=== PATIENT | female | born 1970 | race Caucasian/White ===

== ENCOUNTER → 2016-12-24 | Outpatient (CLI) | payer MEDICARE ==
--- NOTE | 2016-12-24 18:37 | WWHP ---
DATE OF SERVICE: 12/24/2016 CHIEF COMPLAINT: Patient is here for her routine gynecologic exam and mammogram. HPI: This is a 46-year-old, G2, P2 with an LMP of 11/30/2016. She is status post tubal ligation. She is without gynecologic complaints. She states her periods are generally been regular every month, but she missed a period last month. She states it has been about 10 years since her last pelvic exam. Her last mammogram was on 03/08/2014 and was benign. She denies hot flashes. PAST MEDICAL HISTORY: Chronic right leg problems, TMJ, anxiety and depression. MEDICATIONS: 1. Gabapentin 600 mg b.i.d. 2. Celexa 40 mg daily. 3. Baclofen 20 mg daily. 4. [place] 5/325 mg p.r.n. 5. Niacin 500 mg daily. 6. Vitamin B12 1000 units daily. 7. Multivitamin 1 daily. 8. Vitamin D3 2000 units 3 times weekly. ALLERGIES TO LEVAQUIN which caused a headache, weakness, and sick feeling. PAST SURGICAL HISTORY: section x2 and she did have a tubal ligation with her last one, knee replacement surgeries x2 and the right knee revision in 2009, cholecystectomy 1993, umbilical hernia repair in the past. 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 SOCIAL HISTORY: She smokes about 1 pack of cigarettes per day and quit drinking alcohol in 2016. She denies drug use. She is and is not seeing anybody at this time and has not been sexually active for more than 2 years. She is considered disabled. FAMILY HISTORY: Father had an [place] and cousin had lymph node cancer. REVIEW OF SYSTEMS: She denies respiratory or cardiac problems. GI: Occasional constipation which she associates with her opioid pain medication. PHYSICAL EXAM: Blood pressure 125/73. Height 5 feet 3 inches. Weight 214 pounds. Temperature 96.4, pulse 75. This a well-developed, heavyset white female who is alert and oriented x3 in no acute distress. HEENT is within normal limits. NECK: Supple without mass or thyromegaly. CHEST AND LUNGS: Clear to auscultation. HEART: Regular rate and rhythm. Breasts are without mass or discharge. Axillary exam is negative for adenopathy. BACK: Negative for CVA tenderness. ABDOMEN: Soft, nontender, without palpable masses. PELVIC EXAM: Normal external genitalia. Cervix and vagina appear normal. There is no evidence of prolapse. The uterus is midposition, nongravid size and nontender. There are no palpable adnexal masses or tenderness. Rectal exam is negative for mass or tenderness and is negative for occult blood. EXTREMITIES: Nontender. IMPRESSION: A 46-year-old gynecologically healthy female who is status post tubal ligation. PLAN: 1. Pap smear was performed. 2. Self breast examination was discussed. 3. Mammogram will be done today. 4. I have recommended that she quit smoking and we have discussed several reasons why I am suggesting this. 5. Osteoporosis prevention was discussed. 6. She will return in one year.
--- NOTE | 2016-12-25 09:10 | MM ---
Reason for exam: screening (asymptomatic). Last mammogram was performed 2 years and 10 months ago. History: Took hormonal contraceptives for 2 years beginning at age 17. Physical Findings: A clinical breast exam by your physician is recommended on an annual basis and results should be correlated with mammographic findings. MG Screening Mammo w CAD Bilateral CC and MLO view(s) were taken. Prior study comparison: March 08, 2014, bilateral MG diagnostic mammo w CAD [facility]. June 18, 2012, CAD bilateral diagnostic mammogram. The breast tissue is almost entirely fat. There is chronic nodularity in the right breast. No significant changes when compared with prior studies. ASSESSMENT: Benign, BI-RAD 2 RECOMMENDATION: Routine screening mammogram of both breasts in 1 year.
== END | disposition home or self-care (01) ==
LOC: WWCWWP 08:27
PROVIDERS: ATTEND Obstetrics & Gynecology
DX: Z12.31 Encounter for screening mammogram for malignant neoplasm of breast (principal)

== ENCOUNTER → 2018-02-13 | Outpatient (CLI) | payer MEDICARE ==
[2018-02-13 10:07] LABS: Basophils # (A) 0.1 k/uL (0-0.2); Basophils % (A) 1 %; Eosinophils # (A) 0.1 k/uL (0-0.7); Eosinophils % (A) 2 %; HCT 43.2 % (34.0-46.0); HGB 14.1 gm/dL (11.4-16.0); Lymphocytes % (A) 24 %; MCH 31.6 pg (25.0-35.0); MCHC 32.7 g/dL (31.0-37.0); MCV 96.5 fL (80.0-100.0); Mean Platelet Volume 6.7; Monocytes # (A) 0.4 k/uL (0-1.0); Monocytes % (A) 5 %; Neutrophils # (A) 5.6 k/uL (1.3-7.7); Neutrophils % (A) 68 %; Platelet Count 324 k/uL (150-450); RBC 4.48 m/uL (3.80-5.40); RDW 14.9 % (11.5-15.5); WBC 8.3 k/uL (3.8-10.6)
[2018-02-13 10:14] LABS: ALT 41 U/L (9-52); AST 29 U/L (14-36); Albumin 4.1 g/dL (3.5-5.0); Alkaline Phosphatase 73 U/L (38-126); Anion Gap 10 mmol/L; Blood Urea Nitrogen 6 mg/dL (7-17); C Reactive Protein 20.2 mg/L (<10.0); Calcium 9.4 mg/dL (8.4-10.2); Carbon Dioxide 25 mmol/L (22-30); Chloride 105 mmol/L (98-107); Glucose 100 mg/dL (74-99); Potassium 4.5 mmol/L (3.5-5.1); Sodium 140 mmol/L (137-145); Total Bilirubin 0.3 mg/dL (0.2-1.3); Total Protein 7.8 g/dL (6.3-8.2)
[2018-02-13 12:44] LABS: Erythrocyte Sedimentation Rate 36 mm/hr (0-20)
== END | disposition home or self-care (01) ==
LOC: LABWHC1 09:19
PROVIDERS: ATTEND Internal Medicine Infectious Disease
DX: T84.53XA Infection and inflammatory reaction due to internal right knee prosthesis, initial encounter (principal)
CPT/HCPCS: 36415; 80053; 85025; 85652; 86140

== ENCOUNTER → 2018-02-26 | Outpatient (CLI) | payer MEDICARE | END | disposition home or self-care (01) | LOC: RADUSWWP 12:06 | PROVIDERS: ATTEND Internal Medicine Infectious Disease | DX: I73.9 Peripheral vascular disease, unspecified (principal) | CPT/HCPCS: 93923 ==

== ENCOUNTER → 2018-05-13 | Outpatient (CLI) | payer MEDICARE ==
[2018-05-13 09:55] VITALS: BP 121/69; PULSE 73; TEMP 97.4; BMI 37.7
--- NOTE | 2018-05-13 10:29 | P.HPOB ---
History of Present Illness H&P Date: 05/13/18 Chief Complaint: The patient is here for her routine gynecologic exam and mammogram. This is a 47-year-old with an LMP of 03/22/2018. The patient states periods seem to be spacing out and have been about every other month. She does have occasional hot flashes which are not very severe. She is otherwise without complaints. Review of Systems The patient's weight has been stable over the last year. She denies respiratory , cardiac, or G.I. problems. Past Medical History Past Medical History: Osteoarthritis (OA) (With chronic right leg problems) Additional Past Medical History / Comment(s): TMJ. 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 History of Any Multi-Drug Resistant Organisms: None Reported Past Surgical History: Section (x2), Cholecystectomy, Hernia Repair ( Umbilical), Joint Replacement (Knee replacement surgery followed by right knee revision in 2009), Orthopedic Surgery, Tubal Ligation (With last section) Past Psychological History: Anxiety, Depression Smoking Status: Current every day smoker (1 pack per day) Past Alcohol Use History: None Reported (Quit 2015) Past Drug Use History: None Reported Additional History: She is and has not been sexually active for several years. She is disabled. - Past Family History Father Family Medical History: Myocardial Infarction ([place]) Additional Family Medical History / Comment(s): Cousin had lymphoma. Medications and Allergies Home Medications Medication Instructions Recorded Confirmed Type Citalopram Hydrobromide [CeleXA] PO DAILY 05/13/18 History Diclofenac Sodium [Voltaren] PO DAILY 05/13/18 History Sulfamethox-Tmp 800-160Mg [Bactrim PO DAILY 05/13/18 History DS 800-160 mg] Allergies Allergy/AdvReac Type Severity Reaction Status Date / Time levofloxacin [From Levaquin] AdvReac Severe lethargy Unverified 05/13/18 09:52 Exam Vital Signs Temp Pulse BP 05/13/18 09:52 97.4 F L 73 121/69 Intake and Output 05/12/18 05/13/18 05/13/18 22:59 06:59 14:59 Other: Weight 96.615 kg Height 5'3", BMI 37.7. This is a well-developed well-nourished heavyset white female who is alert and oriented times 3 in no acute distress. HEENT: Within normal limits. NECK: Supple without mass or thyromegaly. CHEST AND LUNGS: Clear to auscultation. HEART: Regular rate and rhythm. BREASTS: Are without mass or discharge. AXILLARY EXAM: Negative for adenopathy. BACK: Negative for CVA tenderness. ABDOMEN: Soft, nontender, without palpable masses. PELVIC EXAM: Normal external genitalia. Cervix and vagina appear normal. There is no unusual discharge. There is no evidence of prolapse. The uterus is midposition, nongravid size and nontender. There are no palpable adnexal masses or tenderness. RECTAL EXAM: negative for mass or tenderness and is negative for occult blood. EXTREMITIES: Nontender. IMPRESSION: 1. 47-year-old perimenopausal female with oligomenorrhea and mild vasomotor symptoms with normal gynecologic exam. 2. The patient is status post tubal ligation. PLAN: 1. Pap smear was deferred since she had a normal one last year. 2. Self breast awareness was discussed with the patient. 3. Screening mammogram will be done today. 4. The patient will keep a menstrual calendar and call if she's having menstrual problems or she has bleeding following 12 months of amenorrhea. 5. Osteoporosis prevention was discussed. 6. She will return in one year.
--- NOTE | 2018-05-14 08:59 | MM ---
Reason for exam: screening (asymptomatic). Last mammogram was performed 1 year and 5 months ago. History: Took hormonal contraceptives for 2 years beginning at age 17. Physical Findings: A clinical breast exam by your physician is recommended on an annual basis and results should be correlated with mammographic findings. MG Screening Mammo w CAD Bilateral CC and MLO view(s) were taken. Prior study comparison: December 24, 2016, bilateral MG screening mammo w CAD. March 08, 2014, bilateral MG diagnostic mammo w CAD [facility]. There are scattered fibroglandular densities. No suspicious abnormality. No significant changes when compared with prior studies. ASSESSMENT: Negative, BI-RAD 1 RECOMMENDATION: Routine screening mammogram of both breasts in 1 year.
== END ==
LOC: WWCWWP 09:12
PROVIDERS: ATTEND Obstetrics & Gynecology
DX: Z12.31 Encounter for screening mammogram for malignant neoplasm of breast (principal)
CPT/HCPCS: 77067

== ENCOUNTER → 2019-07-14 | Outpatient (CLI) | payer MEDICARE ==
[2019-07-14 10:59] VITALS: BP 134/84; PULSE 70; RESP 18; TEMP 98.1
--- NOTE | 2019-07-14 11:41 | P.HPOB ---
History of Present Illness H&P Date: 07/14/19 Chief Complaint: The patient is here for her routine gynecologic exam and ma mmogram. This is a 48-year-old with an LMP of 05/25/2019. She is status post tubal ligation. Her menstrual periods have spaced out even more this year. She has had 3 menstrual periods during the past year and they were in August, December, and May. She does have occasional hot flashes, but they are not very severe. She is without gynecologic complaints. Review of Systems The patient has gained 18 pounds over the last year. She denies respiratory, cardiac, or G.I. problems. Past Medical History Past Medical History: Osteoarthritis (OA) Additional Past Medical History / Comment(s): TMJ. Chronic right leg problems associated with arthritis. 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 History of Any Multi-Drug Resistant Organisms: None Reported Past Surgical History: Section, Cholecystectomy, Hernia Repair, Joint Replacement, Orthopedic Surgery, Tubal Ligation Additional Past Surgical History / Comment(s): 2 ,right knee, umbilical hernia repair, knee replacement surgery and right knee revision. Past Psychological History: Anxiety, Depression Smoking Status: Current every day smoker (One pack per day) Past Alcohol Use History: None Reported Past Drug Use History: None Reported Additional History: She is and is not seeing anybody at this time. She is disabled. - Past Family History Father Family Medical History: Myocardial Infarction ([place]) Additional Family Medical History / Comment(s): Cousin had lymphoma. Mother Family Medical History: Cancer Additional Family Medical History / Comment(s): Colorectal cancer. Medications and Allergies Home Medications Medication Instructions Recorded Confirmed Type Citalopram Hydrobromide [CeleXA] 40 mg PO DAILY 05/13/18 07/14/19 History Diclofenac Sodium [Voltaren] 75 mg PO BID 05/13/18 07/14/19 History Sulfamethox-Tmp 800-160Mg [Bactrim 800 mg PO BID 05/13/18 07/14/19 History DS 800-160 mg] Baclofen [Lioresal] 20 mg PO DAILY 07/14/19 07/14/19 History Hydrocodone/Acetaminophen [[place] 1 tab PO Q4HR PRN 07/14/19 07/14/19 History 5-325] Allergies Allergy/AdvReac Type Severity Reaction Status Date / Time levofloxacin [From Levaquin] AdvReac Severe lethargy Unverified 07/14/19 10:51 Exam Vital Signs Temp Pulse Resp BP Pulse Ox 07/14/19 10:56 98.1 F 70 18 134/84 93 L Intake and Output 07/13/19 07/14/19 07/14/19 22:59 06:59 14:59 Other: Weight 105.233 kg Height 5 feet 3 inches, weight 232 pounds, BMI 41.1. This is a well-developed well-nourished white female who is alert and oriented times 3 in no acute distress. HEENT: Within normal limits. NECK: Supple without mass or thyromegaly. CHEST AND LUNGS: Clear to auscultation. HEART: Regular rate and rhythm. BREASTS: Are without mass or discharge. AXILLARY EXAM: Negative for adenopathy. BACK: Negative for CVA tenderness. ABDOMEN: Soft, obese, nontender, without palpable masses. PELVIC EXAM: Normal external genitalia. Cervix and vagina appear normal with minimal atrophy. There is no unusual discharge. There is no evidence of prolapse. The uterus is midposition, nongravid size and nontender. There are no palpable adnexal masses or tenderness. Bimanual examination is somewhat limited secondary to her size. RECTAL EXAM: Rectovaginal exam is negative for mass or tenderness and is negative for occult blood. EXTREMITIES: Nontender. IMPRESSION: 1. 48-year-old perimenopausal female with normal gynecologic exam. 2. Oligomenorrhea with mild vasomotor symptoms consistent with perimenopause. PLAN: 1. Pap smear was performed. 2. Self breast awareness was discussed with the patient. 3. Screening mammogram will be done today. 4. Osteoporosis prevention was discussed. I have stressed the importance of adequate calcium, vitamin D and regular exercise. Recommended amounts of calcium and vitamin D were also discussed. 5. She will continue to keep a menstrual calendar and call if she has menstrual problems. 6. Conservative measures for vasomotor symptoms were discussed. She is to call if she is having severe menopausal symptoms. 7. I have recommended that she look into having her first colonoscopy because of her mother's history of recently diagnosed colorectal cancer. I recommended that she discuss this with her primary care physician. 8. She was advised to return in one year for her annual well woman exam.
--- NOTE | 2019-07-16 11:08 | MM ---
Reason for exam: screening (asymptomatic). Last mammogram was performed 1 year and 2 months ago. History: Took hormonal contraceptives for 2 years beginning at age 17. Physical Findings: A clinical breast exam by your physician is recommended on an annual basis and results should be correlated with mammographic findings. MG Screening Mammo w CAD Bilateral CC and MLO view(s) were taken. XCCL view(s) were taken of the right breast. Prior study comparison: May 13, 2018, bilateral MG screening mammo w CAD. December 24, 2016, bilateral MG screening mammo w CAD. There are scattered fibroglandular densities. No significant changes when compared with prior studies. ASSESSMENT: Benign, BI-RAD 2 RECOMMENDATION: Routine screening mammogram of both breasts in 1 year.
--- NOTE | 2019-07-20 15:27 | P.PN ---
Progress Note - Text Progress Note Date: 07/20/19 OUTPATIENT FOLLOW-UP NOTE TEST(S)/RESULTS: test results from 07/14/2019 include negative Pap smear and benign mammogram. METHOD OF NOTIFICATION: a message with these results was left on the patient's voice mail. PATIENT COMMENTS: DIAGNOSIS: negative Pap smear and benign mammogram. DISCUSSION: PLAN: the patient is to return in one year for her annual well woman exam.
== END | disposition home or self-care (01) ==
LOC: WWCWWP 10:34
PROVIDERS: ATTEND Obstetrics & Gynecology
DX: Z12.31 Encounter for screening mammogram for malignant neoplasm of breast (principal)
CPT/HCPCS: 77067

== ENCOUNTER → 2020-09-27 | Outpatient (CLI) | payer MEDICARE ==
[2020-09-27 09:57] VITALS: BP 115/68; PULSE 79; RESP 18; TEMP 98.8
--- NOTE | 2020-09-27 11:12 | P.HPOB ---
History of Present Illness H&P Date: 09/27/20 Chief Complaint: The patient is here for her routine gynecologic exam and ma mmogram. This is a 49-year-old with an LMP of February 2020. The patient states her menstrual periods have spread out even more and she believes she only had 1 menstrual period during the past year. The year prior to this she had 3 menstrual periods. She does have hot flashes fairly regularly that are mild to moderate and not a big problem for her. She is otherwise without complaints. Review of Systems The patient has lost 12 pounds over the last year. She denies respiratory, cardiac, or G.I. problems. Past Medical History Past Medical History: Osteoarthritis (OA) Additional Past Medical History / Comment(s): TMJ. Chronic right leg problems associated with arthritis. 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 History of Any Multi-Drug Resistant Organisms: None Reported Past Surgical History: Section, Cholecystectomy, Hernia Repair, Joint Replacement, Orthopedic Surgery, Tubal Ligation Additional Past Surgical History / Comment(s): 2 ,right knee, umbilical hernia repair, knee replacement surgery and right knee revision. Colonoscopy 2019(next after 3 yr) Past Psychological History: Anxiety, Depression Smoking Status: Current every day smoker (1 pack per day) Past Alcohol Use History: Rare (3 per year) Past Drug Use History: None Reported Additional History: She is and is sexually active a boyfriend she has been with since 2014. She is disabled. - Past Family History Father Family Medical History: Myocardial Infarction ([place]) Additional Family Medical History / Comment(s): Cousin had lymphoma. Mother Family Medical History: Cancer Additional Family Medical History / Comment(s): Colorectal cancer. 2019. Maternal aunt had cervical cancer. Medications and Allergies Home Medications Medication Instructions Recorded Confirmed Type Citalopram Hydrobromide [CeleXA] 40 mg PO DAILY 05/13/18 09/27/20 History Sulfamethox-Tmp 800-160Mg [Bactrim 800 mg PO BID 05/13/18 09/27/20 History DS 800-160 mg] Baclofen [Lioresal] 20 mg PO DAILY 07/14/19 09/27/20 History Hydrocodone/Acetaminophen [[place] 1 tab PO Q4HR PRN 07/14/19 09/27/20 History 5-325] Cholecalciferol [Vitamin D3 (25 1,000 tab PO DAILY 09/27/20 09/27/20 History Mcg = 1000 Iu)] Allergies Allergy/AdvReac Type Severity Reaction Status Date / Time levofloxacin [From Levaquin] AdvReac Severe lethargy Unverified 09/27/20 09:49 Exam Vital Signs Temp Pulse Resp BP Pulse Ox 09/27/20 09:52 98.8 F 79 18 115/68 96 Intake and Output 09/26/20 09/27/20 09/27/20 22:59 06:59 14:59 Other: Weight 99.79 kg Height 5 feet 4 inches, weight 220 pounds, BMI 37.8. This is a well-developed well-nourished white female who is alert and oriented times 3 in no acute distress. HEENT: Within normal limits. NECK: Supple without mass or thyromegaly. CHEST AND LUNGS: Clear to auscultation. HEART: Regular rate and rhythm. BREASTS: Are without mass or discharge. AXILLARY EXAM: Negative for adenopathy. BACK: Negative for CVA tenderness. ABDOMEN: Soft, nontender, without palpable masses. PELVIC EXAM: Normal external genitalia. Cervix and vagina appear normal. There is no unusual discharge. There is no evidence of prolapse. The uterus is midposition, nongravid size and nontender. There are no palpable adnexal masses or tenderness. RECTAL EXAM: Rectovaginal exam is negative for mass or tenderness and is negative for occult blood. EXTREMITIES: Nontender. IMPRESSION: 1. 49-year-old perimenopausal female who is status post tubal ligation with oligomenorrhea and mild vasomotor symptoms with normal gynecologic exam. PLAN: 1. Pap smear was deferred since she had a normal one on 07/14/2019. 2. Self breast awareness was discussed with the patient. 3. Screening mammogram was done today. 4. Osteoporosis prevention was discussed. I have stressed the importance of adequate calcium, vitamin D and regular exercise. Recommended amounts of calcium and vitamin D were also discussed. 5. The patient will keep a menstrual calendar. She will call if she is having menstrual problems or if she is having vaginal bleeding after 12 or more months of amenorrhea. 6. She was advised to return in one year for her annual well woman exam.
--- NOTE | 2020-09-29 14:02 | MM ---
Reason for exam: screening (asymptomatic). Last mammogram was performed 1 year and 2 months ago. History: Took hormonal contraceptives for 2 years beginning at age 17. Physical Findings: A clinical breast exam by your physician is recommended on an annual basis and results should be correlated with mammographic findings. MG Screening Mammo w CAD Bilateral CC and MLO view(s) were taken. Prior study comparison: July 14, 2019, bilateral MG screening mammo w CAD. May 13, 2018, bilateral MG screening mammo w CAD. There are scattered fibroglandular densities. There is no discrete abnormality. No significant changes when compared with prior studies. ASSESSMENT: Negative, BI-RAD 1 RECOMMENDATION: Routine screening mammogram of both breasts in 1 year.
== END ==
LOC: RADMAMWWP 09:29
PROVIDERS: ATTEND Obstetrics & Gynecology
DX: Z12.31 Encounter for screening mammogram for malignant neoplasm of breast (principal)
CPT/HCPCS: 77067

== ENCOUNTER → 2021-11-20 | Outpatient (CLI) | payer MEDICARE ==
[2021-11-20 08:15] VITALS: BP 118/79; PULSE 84; RESP 16; TEMP 98.2
--- NOTE | 2021-11-20 08:58 | P.HPOB ---
History of Present Illness H&P Date: 11/20/21 Chief Complaint: The patient is here for her routine gynecologic exam and ma mmogram. This is a 51-year-old with an LMP of February 2020. The patient is without gynecologic complaints and denies any postmenopausal bleeding. Review of Systems The patient has gained 17 pounds over the last year. She denies respiratory, cardiac, or G.I. problems. Past Medical History Past Medical History: Osteoarthritis (OA) Additional Past Medical History / Comment(s): TMJ. Chronic right leg problems associated with arthritis. 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 History of Any Multi-Drug Resistant Organisms: None Reported Past Surgical History: Section, Cholecystectomy, Hernia Repair, Joint Replacement, Orthopedic Surgery, Tubal Ligation Additional Past Surgical History / Comment(s): 2 ,right knee, umbilical hernia repair, knee replacement surgery and right knee revision. Colonoscopy 2019(next after 3 yr) Past Psychological History: Anxiety, Depression Smoking Status: Current every day smoker (1 pack per day) Past Alcohol Use History: Rare Past Drug Use History: None Reported Additional History: She is and is sexually active with her boyfriend which she has been with since 2014. She is disabled. - Past Family History Father Family Medical History: Myocardial Infarction ([place]) Additional Family Medical History / Comment(s): Cousin had lymphoma. Mother Family Medical History: Cancer Additional Family Medical History / Comment(s): Colorectal cancer. 2019. Maternal aunt had cervical cancer. Sister(s) Family Medical History: Cancer Additional Family Medical History / Comment(s): Vulvar cancer. Medications and Allergies Home Medications Medication Instructions Recorded Confirmed Type Citalopram Hydrobromide [CeleXA] 40 mg PO DAILY 05/13/18 11/20/21 History Sulfamethox-Tmp 800-160Mg [Bactrim 800 mg PO DAILY 05/13/18 11/20/21 History DS 800-160 mg] Baclofen [Lioresal] 20 mg PO DAILY 07/14/19 11/20/21 History Hydrocodone/Acetaminophen [[place] 1 tab PO Q4HR PRN 07/14/19 11/20/21 History 5-325] Cholecalciferol [Vitamin D3 (25 1,000 tab PO DAILY 09/27/20 11/20/21 History Mcg = 1000 Iu)] Cyanocobalamin (Vitamin B-12) 1,000 mcg PO DAILY 11/20/21 11/20/21 History [Vitamin B-12] Gabapentin 300 mg PO TID 11/20/21 11/20/21 History Allergies Allergy/AdvReac Type Severity Reaction Status Date / Time levofloxacin [From Levaquin] AdvReac Severe lethargy Verified 11/20/21 08:05 Exam Vital Signs Temp Pulse Resp BP Pulse Ox 11/20/21 08:11 98.2 F 84 16 118/79 95 Intake and Output 11/19/21 11/20/21 11/20/21 22:59 06:59 14:59 Other: Weight 107.501 kg Height 5 feet 3 inches, weight 237 pounds, BMI 42.0. This is a well-developed well-nourished heavyset white female who is alert and oriented times 3 in no acute distress. HEENT: Within normal limits. NECK: Supple without mass or thyromegaly. CHEST AND LUNGS: Clear to auscultation. HEART: Regular rate and rhythm. BREASTS: Are without mass or discharge. AXILLARY EXAM: Negative for adenopathy. BACK: Negative for CVA tenderness. ABDOMEN: Soft, obese, nontender, without palpable masses. PELVIC EXAM: External genitalia reveals mild atrophy. There is a whitish flat lesion on the right labia majora measuring approximately 2.5 x 2.0 cm. The lesion has a blotchy whitish appearance and is nonerythematous and nontender. The patient denies any vulvar irritation. There are no other vulvar lesions noted. Cervix and vagina appear normal with mild atrophy. There is no unusual discharge. There is no evidence of prolapse. The uterus is midposition, nongravid size and nontender. There are no palpable adnexal masses or tenderness. Bimanual examination is somewhat limited secondary to her size. RECTAL EXAM: Rectovaginal exam is negative for mass or tenderness and is negative for occult blood. EXTREMITIES: Nontender. IMPRESSION: 1. 51-year-old menopausal female with right vulvar lesion which is flat and whitish in appearance measuring 2.5 x 2.0 cm. PLAN: 1. Pap smear cotest was performed. 2. Self breast awareness was discussed with the patient. We have also discussed symptoms associated with inflammatory breast cancer. 3. Screening mammogram will be done today. 4. The patient will be scheduled for a vulvar biopsy of the right vulvar lesion. 5. I recommended that she cut back on smoking as much as possible, and better yet, quit. 6. She was advised to return in one year for her annual well woman exam and as needed.
--- NOTE | 2021-11-22 10:43 | MM ---
Reason for exam: screening (asymptomatic). Last mammogram was performed 1 year and 2 months ago. History: Patient is postmenopausal. Took hormonal contraceptives for 2 years beginning at age 17. Physical Findings: A clinical breast exam by your physician is recommended on an annual basis and results should be correlated with mammographic findings. MG Screening Mammo w CAD Bilateral CC and MLO view(s) were taken. Prior study comparison: September 27, 2020, bilateral MG screening mammo w CAD. July 14, 2019, bilateral MG screening mammo w CAD. There are scattered fibroglandular densities. No significant changes when compared with prior studies. ASSESSMENT: Benign, BI-RAD 2 RECOMMENDATION: Routine screening mammogram of both breasts in 1 year.
== END ==
LOC: WWCWWP 07:58
PROVIDERS: ATTEND Obstetrics & Gynecology
DX: Z12.31 Encounter for screening mammogram for malignant neoplasm of breast (principal); N90.89 Other specified noninflammatory disorders of vulva and perineum; M19.90 Unspecified osteoarthritis, unspecified site; F41.9 Anxiety disorder, unspecified; F32.A Depression, unspecified; F17.210 Nicotine dependence, cigarettes, uncomplicated; Z79.899 Other long term (current) drug therapy; Z88.1 Allergy status to other antibiotic agents
CPT/HCPCS: 77067

== ENCOUNTER → 2021-12-05 | Day surgery (SDC) | payer MEDICARE ==
[2021-12-05 11:57] VITALS: TEMP 98.5
--- NOTE | 2021-12-05 13:14 | P.PN ---
Progress Note - Text Progress Note Date: 12/05/21 OUTPATIENT FOLLOW-UP NOTE TEST(S)/RESULTS: Test results from 11/20/2021 include Pap smear showing ASCUS with negative high-risk HPV testing. METHOD OF NOTIFICATION: The patient was notified and person. PATIENT COMMENTS: DIAGNOSIS: ASCUS Pap smear with negative high-risk HPV testing. DISCUSSION: Previous Pap smear on 07/14/2019 was negative. ASCCP guidelines recommends repeating Pap smear cotest in 3 years. PLAN: The above. Also see the procedure note for the right vulvar biopsy which was performed today, on 12/05/2021.
--- NOTE | 2021-12-05 13:21 | P.PCN ---
Date of Procedure: 12/05/21 Preoperative Diagnosis: Right vulvar lesion of uncertain behavior. Postoperative Diagnosis: Same. Procedure(s) Performed: Right vulvar lesion biopsy. Anesthesia: local Surgeon: Diogo Childress Estimated Blood Loss (ml): 1 Pathology: other (Right vulvar biopsy tissue.) Condition: stable Disposition: same day Indications for Procedure: This was a 51-year-old menopausal female who was found to have a pale vulvar lesion on the right inner labia majora during her annual well woman examination. Operative Findings: On the inner aspect of the right labia majora, there is a blotchy pale area measuring approximately 2.0 x 2.5 cm which is flat and non-erythematous. The area is nontender. Description of Procedure: Prior to the procedure, we have discussed the findings and reasons why I have recommended biopsy of the lesion. We've discussed possible risks including bleeding and infection. All questions have been answered. The patient was placed in the lithotomy position. The area was prepped with Betadine solution. 1 mL of 1% lidocaine was injected for local anesthesia. Following determination of adequate anesthesia, a 4 mm punch biopsy was used and this tissue was then removed with scissors. The biopsy site was made hemostatic with a silver nitrate stick. Antibiotic ointment was applied and clean gauze was placed between the labia. The patient tolerated the procedure well. There were no complications. The estimated blood loss was 1 mL. The biopsy tissue was sent for pathological examination. The patient was instructed to call if problems such as heavy bleeding or unusual pain. She was to avoid running and sexual activity until the site has completely healed. She will apply Neosporin twice daily until healed.
[2021-12-05 13:22] VITALS: BP 127/82; PULSE 69; RESP 17
--- NOTE | 2021-12-11 17:27 | P.PN ---
Progress Note - Text Progress Note Date: 12/11/21 OUTPATIENT FOLLOW-UP NOTE TEST(S)/RESULTS: Vulvar biopsy pathology from 12/05/2021 shows lichen sclerosis of the vulva. METHOD OF NOTIFICATION: The patient was notified by phone. PATIENT COMMENTS: She has had some slight irritation since the biopsy. She has not had any more bleeding from the site. DIAGNOSIS: Mild early lichen sclerosis of the vulva. DISCUSSION: We have discussed the nature of lichen sclerosus and how it can be a very chronic condition. She will continue to use Neosporin until the biopsy site has completely healed. She can then use Temovate 0.05% ointment twice a day when necessary for vulvar irritation. Information on lichen sclerosus of the vulva will be mailed to the patient. The electronic prescription for the ointment will be sent to my her pharmacy in [place]. PLAN: She was instructed to call if she is having problems or if she has any questions about this condition.
== END ==
LOC: WWCWWP 11:39
PROVIDERS: ATTEND Obstetrics & Gynecology
DX: N90.4 Leukoplakia of vulva (principal); Z78.0 Asymptomatic menopausal state
CPT/HCPCS: 88305

== ENCOUNTER → 2022-12-11 | Outpatient (CLI) | payer MEDICARE ==
--- NOTE | 2022-12-12 19:41 | MM ---
Reason for Exam: Screening (asymptomatic). Last mammogram was performed 1 year(s) and 1 month(s) ago. Patient History: Menarche at age 11. First Full-Term at age 19. Postmenopausal. Hormonal Contraceptives for 2 years from age 17 until age 19. Risk Values: Renetta 5 year model risk: 1.0%. NCI Lifetime model risk: 7.7%. Prior Study Comparison: 07/14/2019 Bilateral Screening Mammogram, [facility]. 09/27/2020 Bilateral Screening Mammogram, [facility]. 11/20/2021 Bilateral Screening Mammogram, [facility]. Tissue Density: There are scattered fibroglandular densities. Findings: Analyzed By CAD. Chronic nodularity posterior upper-outer quadrant right breast compatible with low axillary tail lymph nodes. There is no suspicious group of microcalcifications or new suspicious mass in either breast. Overall Assessment: Benign, BI-RAD 2 Management: Screening Mammogram of both breasts in 1 year. . Patient should continue monthly self-breast exams. A clinical breast exam by your physician is recommended on an annual basis. This exam should not preclude additional follow-up of suspicious palpable abnormalities. Note on Renetta scores and lifetime risk: 1. A Renetta score greater than 3% is considered moderate risk. If this is the case, consider specialist referral to assess eligibility for a risk reducing agent. 2. If overall lifetime risk for the development of breast cancer is 20% or higher, the patient may qualify for future screening with alternating mammogram and breast MRI. Electronically signed and approved by: Kamla Stover M.D. Radiologist
== END | disposition home or self-care (01) ==
LOC: RADMAMWWP 15:50
PROVIDERS: ATTEND Obstetrics & Gynecology
DX: Z12.31 Encounter for screening mammogram for malignant neoplasm of breast (principal); Z78.0 Asymptomatic menopausal state
CPT/HCPCS: 77067

== ENCOUNTER 2023-10-22 18:30 | Emergency (ER) | payer MEDICARE ==
--- NOTE | 2023-10-22 18:55 | ED ---
General Adult HPI - General Chief complaint: Skin/Abscess/Foreign Body Stated complaint: possible rt leg infection Time Seen by Provider: 10/22/23 18:39 Source: patient, RN notes reviewed Mode of arrival: ambulatory Limitations: no limitations - History of Present Illness Initial comments: Patient is a pleasant 52-year-old female presenting to the emergency department with concerns for her leg. Patient does have history of previous knee replacement x 2 followed by infection and then followed by surgical repair with muscle. Patient does have history of infection following this. Patient states the last 2 days she has had some intermittent redness of the area. Area involved is her proximal tib-fib, below the knee. Patient has had some mild swe lling and moderate increase in discomfort. No fevers. - Related Data Home Medications Medication Instructions Recorded Confirmed Citalopram Hydrobromide [CeleXA] 40 mg PO DAILY 05/13/18 12/10/22 Sulfamethox-Tmp 800-160Mg [Bactrim 800 mg PO DAILY 05/13/18 12/10/22 DS 800-160 mg] Hydrocodone/Acetaminophen [[place] 1 tab PO Q4HR PRN 07/14/19 12/10/22 5-325] Cholecalciferol [Vitamin D3 (25 1,000 tab PO DAILY 09/27/20 12/10/22 Mcg = 1000 Iu)] Gabapentin 300 mg PO TID 11/20/21 12/10/22 Cyclobenzaprine [Flexeril] 10 mg PO DIRECTED PRN 12/10/22 12/10/22 Semaglutide [Ozempic] 0.25 mg PO WEEKLY 12/10/22 12/10/22 Previous Rx's Medication Instructions Recorded Clobetasol Propionate [Temovate 1 applic TP BID PRN #30 gm 12/10/22 0.05% Oint] Allergies Allergy/AdvReac Type Severity Reaction Status Date / Time levofloxacin [From Levaquin] AdvReac Severe lethargy Verified 10/22/23 18:35 Review of Systems ROS Statement: Those systems with pertinent positive or pertinent negative responses have been documented in the HPI. ROS Other: All systems not noted in ROS Statement are negative. Constitutional: Denies: fever Eyes: Denies: eye pain ENT: Denies: ear pain Respiratory: Denies: dyspnea Musculoskeletal: Reports: as per HPI Skin: Reports: as per HPI Past Medical History Past Medical History: Osteoarthritis (OA) Additional Past Medical History / Comment(s): TMJ. Chronic right leg problems associated with arthritis. 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 Lichens Sclerosus of vulva (Bx 2021). History of Any Multi-Drug Resistant Organisms: None Reported Past Surgical History: Section, Cholecystectomy, Hernia Repair, Joint Replacement, Orthopedic Surgery, Tubal Ligation Additional Past Surgical History / Comment(s): 2 ,right knee, umbilical hernia repair, knee replacement surgery and right knee revision. Colonoscopy 2019(next after 3 yr) Past Psychological History: Anxiety, Depression Smoking Status: Current every day smoker Past Alcohol Use History: None Reported Past Drug Use History: None Reported - Past Family History Father Family Medical History: Myocardial Infarction ([place]) Additional Family Medical History / Comment(s): Cousin had lymphoma. Mother Family Medical History: Cancer Additional Family Medical History / Comment(s): Colorectal cancer. 2019. Maternal aunt had cervical cancer. Sister(s) Family Medical History: Cancer Additional Family Medical History / Comment(s): Vulvar cancer. General Exam Limitations: no limitations General appearance: alert, in no apparent distress Head exam: Present: normocephalic Eye exam: Present: normal appearance Neck exam: Present: normal inspection Respiratory exam: Present: normal lung sounds bilaterally Cardiovascular Exam: Present: regular rate, normal rhythm Expanded Peripheral pulses: 2+: Dorsalis Pedis (R) GI/Abdominal exam: Present: soft. Absent: tenderness Extremities exam: Present: tenderness (Right proximal anterior tib-fib with area of swelling approximately 4 x 5 cm with some mild tenderness and mild warmth. No erythema. Distally the extremity is neurovascular intact.) Neurological exam: Present: alert Psychiatric exam: Present: normal affect, normal mood Skin exam: Present: normal color. Absent: erythema Course Vital Signs 10/22/23 18:32 Temperature 99.0 F Pulse Rate 90 Respiratory 18 Rate Blood Pressure 115/80 O2 Sat by Pulse 98 Oximetry Medical Decision Making - Medical Decision Making Was pt. sent in by a medical professional or institution (, PA, REGIONAL DRIVER, urgent care, hospital, or alf...) When possible be specific @ -Patient did speak with Dr. Martinez with infectious disease that who advised evaluation Did you speak to anyone other than the patient for history (EMS, parent, family, police, friend...)? What history was obtained from this source @ -No Did you review nursing and triage notes (agree or disagree)? Why? @ -I reviewed and agree with nursing and triage notes Were old charts reviewed (outside hosp., previous admission, EMS record, old E KG, old radiological studies, urgent care reports/EKG's, alf records)? Report findings @ -No old charts were reviewed Differential Diagnosis (chest pain, altered mental status, abdominal pain women, abdominal pain men, vaginal bleeding, weakness, fever, dyspnea, syncope, headache, dizziness, GI bleed, back pain, seizure, CVA, palpatations, mental health, musculoskeletal)? @ -Differential Fever: Pneumonia, viral URI, endocarditis, myocarditis, pericarditis, otitis, sinusitis, peritonsillar Abscess, retropharyngeal Abscess, epiglottitis, peritonitis, appendicitis, Nasrin cystitis, diverticulitis, hepatitis, colitis, UTI, PID, TOA, pyelonephritis, prostatitis, epididymitis, meningitis, encephalitis, pulmonary embolism, CVA, thyroid storm, pancreatitis, adrenal crisis, cavernous sinus thrombosis, this is not meant to be an all-inclusive list. EKG interpreted by me (3pts min.). @ -As above X-rays interpreted by me (1pt min.). @ -X-ray shows chronic changes. Radiology read is still pending CT interpreted by me (1pt min.). @ -None done U/S interpreted by me (1pt. min.). @ -None done What testing was considered but not performed or refused? (CT, X-rays, U/S, labs)? Why? @ -None What meds were considered but not given or refused? Why? @ -None Did you discuss the management of the patient with other professionals (professionals i.e. , PA, REGIONAL DRIVER, lab, RT, psych nurse, psych social worker, rvda master certified rv technician, teacher, chief merchandising officer, employment case manager)? Give summary @ -Case discussed with Dr. Torres who is really with this patient and states she is already on Bactrim. He states patient can be discharged and follow-up with them next week Was smoking cessation discussed for >3mins.? @ -No Was critical care preformed (if so, how long)? @ -No Were there social determinants of health that impacted care today? How? (Homelessness, low income, unemployed, alcoholism, drug addiction, tra nsportation, low edu. Level, literacy, decrease access to med. care, care home, rehab)? @ -No Was there de-escalation of care discussed even if they declined (Discuss DNR or withdrawal of care, Hospice)? DNR status @ -No What co-morbidities impacted this encounter? (DM, HTN, Smoking, COPD, CAD, Cancer, CVA, ARF, Chemo, Hep., AIDS, mental health diagnosis, sleep apnea, morbid obesity)? @ -None Was patient admitted / discharged? Hospital course, mention meds given and route, prescriptions, significant lab abnormalities, going to OR and other pertinent info. @ -Patient reevaluated and resting comfortably in bed. Patient is updated on results and plan. Patient was agreeable to follow-up. Patient advised to return if symptoms worsen. Patient does have potential for small infection however does not appear to be severe at this time necessitating inpatient care. Patient is already on oral antibiotics and has seen and has established follow- up with her infectious disease doctor. Undiagnosed new problem with uncertain prognosis? @ -No Drug Therapy requiring intensive monitoring for toxicity (Heparin, Nitro, Insulin, Cardizem)? @ -No Were any procedures done? @ -No Diagnosis/symptom? @ -Leg pain Acute, or Chronic, or Acute on Chronic? @ -Acute Uncomplicated (without systemic symptoms) or Complicated (systemic symptoms)? @ -Default Side effects of treatment? @ -No Exacerbation, Progression, or Severe Exacerbation? @ -No Poses a threat to life or bodily function? How? (Chest pain, [place], [place], pneumonia, PE, COPD, DKA, ARF, appy, cholecystitis, CVA, Diverticulitis, Homicidal, Rosales icidal, threat to staff... and all critical care pts) @ -No - Lab Data Result diagrams: 10/22/23 19:10 10/22/23 19:10 Lab Results 10/22/23 10/22/23 10/22/23 Range/Units 19:10 19:10 19:10 WBC 8.0 (3.8-10.6) k/uL RBC 5.11 (3.80-5.40) m/uL Hgb 15.6 (11.4-16.0) gm/dL Hct 49.4 H (34.0-46.0) % MCV 96.8 (80.0-100.0) fL MCH 30.6 (25.0-35.0) pg MCHC 31.6 (31.0-37.0) g/dL RDW 14.5 (11.5-15.5) % Plt Count 285 (150-450) k/uL MPV 8.0 Neutrophils % 57 % Lymphocytes % 32 % Monocytes % 6 % Eosinophils % 2 % Basophils % 1 % Neutrophils # 4.5 (1.3-7.7) k/uL Lymphocytes # 2.6 (1.0-4.8) k/uL Monocytes # 0.5 (0-1.0) k/uL Eosinophils # 0.2 (0-0.7) k/uL Basophils # 0.1 (0-0.2) k/uL Sodium 137 (137-145) mmol/L Potassium 4.2 (3.5-5.1) mmol/L Chloride 102 (98-107) mmol/L Carbon Dioxide 26 (22-30) mmol/L Anion Gap 9 mmol/L BUN 8 (7-17) mg/dL Creatinine 0.77 (0.52-1.04) mg/dL Est GFR (CKD-EPI)AfAm >90 (>60 ml/min/1.73 sqM) Est GFR (CKD-EPI)NonAf 88 (>60 ml/min/1.73 sqM) Glucose 104 H (74-99) mg/dL Plasma Lactic Acid Justo 2.2 H* (0.7-2.0) mmol/L Calcium 9.7 (8.4-10.2) mg/dL Total Bilirubin 0.3 (0.2-1.3) mg/dL AST 21 (14-36) U/L ALT 16 (4-34) U/L Alkaline Phosphatase 80 (38-126) U/L Total Protein 8.7 H (6.3-8.2) g/dL Albumin 4.4 (3.5-5.0) g/dL Disposition Clinical Impression: Leg pain Disposition: HOME SELF-CARE Condition: Stable Instructions (If sedation given, give patient instructions): Cellulitis (ED), Leg Pain (ED) Additional Instructions: Continue Bactrim. Please do follow-up with your primary care physician in the next day or 2 for recheck. Please do follow-up with Dr. Martinez next week as directed. Return for increased redness, increased swelling, increased pain, fever, worsening or changing symptoms or any other concerns. Is patient prescribed a controlled substance at d/c from ED?: No Referrals: Nixon Pham DO [Primary Care Provider] - 1-2 days Time of Disposition: 21:53
[2023-10-22 19:04] VITALS: TEMP 99
[2023-10-22 19:49] LABS: Basophils # (A) 0.1 k/uL (0-0.2); Basophils % (A) 1 %; Eosinophils # (A) 0.2 k/uL (0-0.7); Eosinophils % (A) 2 %; HCT 49.4 % (34.0-46.0); HGB 15.6 gm/dL (11.4-16.0); Lymphocytes # (A) 2.6 k/uL (1.0-4.8); Lymphocytes % (A) 32 %; MCH 30.6 pg (25.0-35.0); MCHC 31.6 g/dL (31.0-37.0); MCV 96.8 fL (80.0-100.0); Monocytes # (A) 0.5 k/uL (0-1.0); Monocytes % (A) 6 %; Neutrophils # (A) 4.5 k/uL (1.3-7.7); Neutrophils % (A) 57 %; Platelet Count 285 k/uL (150-450); RBC 5.11 m/uL (3.80-5.40); RDW 14.5 % (11.5-15.5)
[2023-10-22 20:13] LABS: ALT 16 U/L (4-34); AST 21 U/L (14-36); African American GFR (CKD) >90 (>60 ml/min/1.73 sqM); Albumin 4.4 g/dL (3.5-5.0); Alkaline Phosphatase 80 U/L (38-126); Anion Gap 9 mmol/L; Blood Urea Nitrogen 8 mg/dL (7-17); Calcium 9.7 mg/dL (8.4-10.2); Carbon Dioxide 26 mmol/L (22-30); Chloride 102 mmol/L (98-107); Glucose 104 mg/dL (74-99); Non-African American GFR(CKD) 88 (>60 ml/min/1.73 sqM); Potassium 4.2 mmol/L (3.5-5.1); Sodium 137 mmol/L (137-145); Total Bilirubin 0.3 mg/dL (0.2-1.3); Total Protein 8.7 g/dL (6.3-8.2)
[2023-10-22 21:53] LABS: INR 0.9 (<1.2); Partial Thromboplastin Time 25.5 sec (22.0-30.0); Prothrombin Time 10.2 sec (10.0-12.5)
--- NOTE | 2023-10-22 22:03 | XR ---
EXAMINATION TYPE: XR tibia fibula RT DATE OF EXAM: 10/22/2023 7:23 PM CLINICAL INDICATION:Female, 52 years old with history of infection; H COMPARISON: TECHNIQUE: XR tibia fibula RT; tibia/fibula was examined in AP and lateral projections. FINDINGS: There is a right total knee arthroplasty present, the imaged portions appear intact and nor nora aligned without evidence of perihardware lucency. No acute osseous fracture or significant mario lignment. No osseous erosions or aggressive periostitis. There is soft tissue irregularity in the upper calf medially with underlying amorphous calcifications and suggestion of an ovoid soft tissue density with multiple surgical clips in the region. Distal ti tomasa and fibula appear essentially unremarkable. The ankle appears grossly intact as seen. IMPRESSION: 1. Nonspecific soft tissue findings in the medial upper calf. There is an ovoid density suggested wh ich could be due to hematoma, abscess, or mass. Correlate clinically. 2. No acute osseous abnormality demonstrated. No radiographic evidence of osteomyelitis. If there is persistent clinical concern, further evaluation with MRI over 3 phase bone scan could be considered.
[2023-10-22 22:19] VITALS: BP 107/73; PULSE 73; RESP 16
== END 2023-10-22 22:03 | disposition home or self-care (01) ==
LOC: EC 18:30
DX: M79.604 Pain in right leg (principal); F17.200 Nicotine dependence, unspecified, uncomplicated; Z88.1 Allergy status to other antibiotic agents
CPT/HCPCS: 36415; 80053; 83605; 85025; 85610; 85730; 87040; 99283